=== PATIENT | male | born 1990 | race Caucasian/White ===

== ENCOUNTER 2020-09-11 18:16 | Emergency (ER) | payer SELFPAY ==
[~2020-09-11] VITALS: Ht 175.3 cm; Wt 63.5 kg
[2020-09-11 18:17] VITALS: BP 144/80
--- NOTE | 2020-09-11 18:23 | NUR ---
29 [facility] Pt refusing to answer questions when asked.
[2020-09-11 18:39] VITALS: BP 144/80
--- NOTE | 2020-09-11 18:40 | NUR ---
PATIENT [facility] POLICE DEPT. PATIENT EXAMINED BY DR. Das. PATIENT NOT MEDICALLY CLEARED AND RELEASED IN CUSTODY. ORIGINAL PRE-BOOK FORM GIVEN TO OFFICER Moy.
== END 2020-09-11 18:40 ==
LOC: MED 18:16
DX: R00.0 Tachycardia, unspecified (principal); Z02.89 Encounter for other administrative examinations
CPT/HCPCS: 99283